=== PATIENT | male | born 1945 | race Caucasian/White ===

== ENCOUNTER 2017-05-26 08:13 | Emergency (ER) | payer MEDICARE | END 2017-05-26 11:36 | disposition home or self-care (01) | LOC: FTE 08:13 | DX: Z76.0 Encounter for issue of repeat prescription (principal); R07.9 Chest pain, unspecified; E11.9 Type 2 diabetes mellitus without complications; Z79.84 Long term (current) use of oral hypoglycemic drugs | CPT/HCPCS: 82962; 93005; 99283-25 ==